=== PATIENT | female | born 1990 | race Caucasian/White ===

== ENCOUNTER 2016-08-24 15:45 | Emergency (ER) | payer OTHER ==
[2016-11-07] MEDS ORDERED: COLACE 100MG C100 MG PO (22:35)
[2016-11-07] MEDS ORDERED: NORCO 5-325 TA1 EACH PO (22:36)
[2016-11-07] MEDS ORDERED: IBUPROFEN600 MG PO (22:36)
== END 2016-08-24 18:39 | disposition left against medical advice (07) ==
LOC: ER1 15:45
DX: O20.0 Threatened abortion (principal); O23.41 Unspecified infection of urinary tract in pregnancy, first trimester; O98.311 Other infections with a predominantly sexual mode of transmission complicating pregnancy, first trimester; A59.9 Trichomoniasis, unspecified; O99.331 Smoking (tobacco) complicating pregnancy, first trimester; F17.200 Nicotine dependence, unspecified, uncomplicated; Z3A.08 8 weeks gestation of pregnancy
CPT/HCPCS: 36415; 81001; 99284; J0696

== ENCOUNTER → 2021-07-18 | Outpatient (CLI) | payer OTHER ==
[~2021-07-18] MED LIST: BENTYL 20MG TAB20 MG PO; COLACE 100MG C100 MG PO; IBUPROFEN600 MG PO; MACROBID 100 M100 MG PO; NORCO 5-325 TA1 EACH PO; PRENATAL MULTI1 EAC4 PO; REGLAN10 MG PO; SERTRALINE HCL25 MG PO
[2021-07-19 10:16] LABS: ALPHA-1-ANTITRYPSIN, SERUM 175 mg/dL (100-188)
[2021-07-19 11:16] LABS: HBSAG SCREEN Negative (Negative); HEP A AB, IGM Negative (Negative); HEP B CORE AB, IGM Negative (Negative); HEP C VIRUS AB >11.0 (0.0-0.9)
[2021-07-19 13:11] LABS: MITOCHONDRIAL (M2) ANTIBODY <20.0 Units (0.0-20.0)
== END ==
LOC: US 10:30
PROVIDERS: Internal Medicine Gastroenterology
DX: R94.5 Abnormal results of liver function studies (principal); R79.89 Other specified abnormal findings of blood chemistry
CPT/HCPCS: 36415; 76705; 80074; 82103; 82728; 83540; 83550; 86038